=== PATIENT | male | born 1945 | race Caucasian/White ===

== ENCOUNTER 2018-03-09 09:45 | Emergency (ER) | payer MEDICARE, OTHER ==
[~2018-03-09] VITALS: Ht 182.9 cm; Wt 93.0 kg
[2018-03-09] MEDS ORDERED: TAMS0.4C34 PO (09:57)
[2018-03-09] MEDS ORDERED: ZOLM5TAB10 PO (09:57)
[2018-03-09] MEDS ORDERED: SIMV20TA6 PO (09:57)
[2018-03-09] MEDS ORDERED: DEXAMETHASONE SOD PHOSPHATE 10 MG INJ ONE (10:29)
[2018-03-09] MEDS ORDERED: DEXAMETHASONE SOD PHOSPHATE 4 MG INJ IM ONE (10:30)
[2018-03-09] MEDS ORDERED: HYDROCODONE/APAP 7.5-325MG TABLET PO PRN (10:30)
[2018-03-09] MEDS ORDERED: HYDROCODONE/APAP 7.5-325MG TABLET ONE (10:30)
--- NOTE | 2018-03-09 11:45 | NUR ---
Patient discharged to home in stable conditon. Written and verbal after care instructions given. Patient verbalizes understanding of instructions.pt walks in steady gait. pt with ./ pt not driving
== END 2018-03-09 11:54 | disposition home or self-care (01) ==
LOC: ER 09:45
DX: S39.012A Strain of muscle, fascia and tendon of lower back, initial encounter (principal); M54.16 Radiculopathy, lumbar region; Z79.899 Other long term (current) drug therapy; X58.XXXA Exposure to other specified factors, initial encounter; Y93.89 Activity, other specified; Y92.89 Other specified places as the place of occurrence of the external cause; Y99.8 Other external cause status
CPT/HCPCS: 72100; 96372; 99284; A4663; J1100